=== PATIENT | female | born 1995 | race African-American/Black ===

== ENCOUNTER 2023-02-22 13:23 | Emergency (ER) | payer OTHER ==
[~2023-02-22] VITALS: Ht 167.6 cm; Wt 65.9 kg
[2023-02-22] MEDS ORDERED: KETOROLAC 30MG/ML VIAL IM ONE (15:45)
[2023-02-22] MEDS ORDERED: IBUPROFEN 600MG TABLET PO ONE (16:15)
[2023-02-22 16:28] VITALS: BP 105/73
[2023-02-22] MEDS ORDERED: CYCL5TAB MT (17:09)
[2023-02-22] MEDS ORDERED: NAPR-1176 MT (17:09)
== END 2023-02-22 17:31 | disposition home or self-care (01) ==
LOC: ER 13:23
DX: S16.1XXA Strain of muscle, fascia and tendon at neck level, initial encounter (principal); S39.012A Strain of muscle, fascia and tendon of lower back, initial encounter; S40.012A Contusion of left shoulder, initial encounter; V49.59XA Passenger injured in collision with other motor vehicles in traffic accident, initial encounter; Y93.89 Activity, other specified; Y92.89 Other specified places as the place of occurrence of the external cause; Y99.8 Other external cause status
CPT/HCPCS: 71045; 73030; 81025; 99284; J1885

== ENCOUNTER 2023-09-12 20:50 | Emergency (ER) | payer OTHER ==
[~2023-09-12] VITALS: Ht 167.6 cm; Wt 66.0 kg
[~2023-09-12 20:50] MED LIST: CYCL5TAB MT; NAPR-1176 MT
[2023-09-12 21:10] VITALS: TEMP 97.8; O2SAT 98
[2023-09-12 21:37] LABS: CLARITY URINE CLOUDY (CLEAR); COLOR URINE YELLOW (YELLOW); GLUCOSE URINE NEGATIVE (NEGATIVE); KETONES URINE NEGATIVE (NEGATIVE); LEUKOCYTE ESTERASE URINE 1+ (NEGATIVE); NITRITE URINE POSITIVE (NEGATIVE); OCCULT BLOOD URINE NEGATIVE (NEGATIVE); PROTEIN URINE NEGATIVE (NEGATIVE); SPECIFIC GRAVITY URINE 1.023 (1.005-1.030)
[2023-09-12 21:55] LABS: BACTERIA URINE 4+; RBC URINE 0-2 /hpf (0-2); SQUAMOUS EPITHELIAL CELL URINE 2+ /lpf (RARE/1+)
[2023-09-12] MEDS ORDERED: IBUP-2028 MT (22:05)
[2023-09-12] MEDS ORDERED: CEPH500C2 MT (22:05)
[2023-09-12] MEDS ORDERED: IBUPROFEN 400MG TABLET PO ONE (22:30)
[2023-09-12 22:44] VITALS: BP 114/71; PULSE 76; RESP 16
== END 2023-09-12 22:46 | disposition home or self-care (01) ==
LOC: ER 20:50
DX: M54.9 Dorsalgia, unspecified (principal); R10.9 Unspecified abdominal pain; N39.0 Urinary tract infection, site not specified; V98.8XXA Other specified transport accidents, initial encounter; Y93.89 Activity, other specified; Y92.89 Other specified places as the place of occurrence of the external cause; Y99.8 Other external cause status
CPT/HCPCS: 81003; 81025; 99283

== ENCOUNTER 2023-12-17 20:31 | Emergency (ER) | payer OTHER ==
[~2023-12-17] VITALS: Ht 167.6 cm; Wt 68.0 kg
[~2023-12-17 20:31] MED LIST changes: +CEPH500C2 MT; +IBUP-2028 MT
[2023-12-17 20:42] VITALS: O2SAT 98
[2023-12-17] MEDS ORDERED: NAPR-1176 MT (23:15)
[2023-12-17 23:29] VITALS: BP 129/85; PULSE 72; RESP 16; TEMP 98.3
[2023-12-17] MEDS ORDERED: KETOROLAC 15MG/ML VIAL IM ONE (23:30)
== END 2023-12-17 23:33 | disposition home or self-care (01) ==
LOC: ER 20:31
DX: S00.93XA Contusion of unspecified part of head, initial encounter (principal); S10.93XA Contusion of unspecified part of neck, initial encounter; V49.49XA Driver injured in collision with other motor vehicles in traffic accident, initial encounter; Y93.89 Activity, other specified; Y92.89 Other specified places as the place of occurrence of the external cause; Y99.8 Other external cause status
CPT/HCPCS: 81025; 99282